=== PATIENT | male | born 1995 | race Caucasian/White ===

== ENCOUNTER 2017-01-08 14:06 | Emergency (ER) | payer OTHER ==
[~2017-01-08] VITALS: Ht 170.2 cm; Wt 72.0 kg
[~2017-01-08 14:06] MED LIST: BENA25MI PO; CARA1TAB2 PO; FAMO20 PO; TUMS500C PO; ZOFR4TAB3 SL
[2017-01-08 14:19] VITALS: BP 125/78; PULSE 103; RESP 16; TEMP 98.4; O2SAT 97
[2017-01-08] MEDS ORDERED: SODIUM CHLOR 0.9% 1000 ML INJ 1,000 ML IV ONE ×2 (14:30)
[2017-01-08] MEDS ORDERED: ONDANSETRON HCL 4 MG/2 ML VIAL IV PUSH ONE (14:30)
--- NOTE | 2017-01-08 14:48 | PD ---
HPI Chief Complaint: GI Complaint Time Seen by Provider: 14:30 Travel History International Travel<30 days: No Contact w/Intl Traveler<30days: No Traveled to known affect area: No History of Present Illness HPI This 21-year-old male said he had an episode while he was working today where he passed out. He woke up early this morning and was not feeling well he vomited several times. He is also having some loose stools. He does not recall eating anything unusual. He has not passed out before. He was having some bilateral lateral chest wall pain. He is on no medications. PFS Past Medical History Asthma: Yes (AGE 3) Diminished Hearing: No Immunizations Current: Yes (UTD) Social History Alcohol Use: No Tobacco Use: No Substance Use: No Allergies-Medications (Allergen,Severity, Reaction): Coded Allergies: No Known Allergies (Verified , 01/08/17) Reported Meds & Prescriptions Reported Meds & Active Scripts Active Reported Amitriptyline (Amitriptyline HCl) 50 Mg Tab 50 Mg PO HS Review of Systems General / Constitutional: No: Fever, Chills Eyes: No: Diploplia, Blurred Vision HENT: No: Headaches Cardiovascular: Positive: Chest Pain or Discomfort Respiratory: No: Cough, Shortness of Breath Gastrointestinal: Positive: Nausea, Vomiting, Diarrhea, Abdominal Pain Genitourinary: No: Urgency, Frequency Musculoskeletal: No: Myalgias, Arthralgias Skin: No Rash, No Itching Neurologic: Positive: Syncope Hematologic/Lymphatic: No: Easy Bruising Physical Exam Narrative GENERAL: Well-developed male SKIN: Focused skin assessment warm/dry. HEAD: Atraumatic. Normocephalic. EYES: Pupils equal and round. No scleral icterus. No injection or drainage. ENT: No nasal bleeding or discharge. Mucous membranes pink and moist. NECK: Trachea midline. No JVD. CARDIOVASCULAR: Regular rate and rhythm. No murmur appreciated. RESPIRATORY: No accessory muscle use. Clear to auscultation. Breath sounds equal bilaterally. GASTROINTESTINAL: Abdomen soft, non-tender, nondistended. Hepatic and splenic margins not palpable. MUSCULOSKELETAL: No obvious deformities. No clubbing. No cyanosis. No edema. NEUROLOGICAL: Awake and alert. No obvious cranial nerve deficits. Motor grossly within normal limits. Normal speech. PSYCHIATRIC: Appropriate mood and affect; insight and judgment normal. Data Data Last Documented VS Vital Signs Date Time Temp Pulse Resp B/P Pulse Ox O2 Delivery O2 Flow Rate FiO2 01/08/17 14:19 98.4 103 16 125/78 97 Orders Electrocardiogram (01/08/17 14:30) Complete Blood Count With Diff (01/08/17 14:30) Comprehensive Metabolic Panel (01/08/17 14:30) Urinalysis - C+S If Indicated (01/08/17 14:30) Sodium Chlor 0.9% 1000 Ml Inj (Ns 1000 M (01/08/17 14:30) Sodium Chlor 0.9% 1000 Ml Inj (Ns 1000 M (01/08/17 14:30) Ondansetron Inj (Zofran Inj) (01/08/17 14:30) Labs Laboratory Tests Test 01/08/17 14:58 White Blood Count 13.1 TH/MM3 Red Blood Count 5.81 MIL/MM3 Hemoglobin 17.1 GM/DL Hematocrit 50.2 % Mean Corpuscular Volume 86.3 FL Mean Corpuscular Hemoglobin 29.4 PG Mean Corpuscular Hemoglobin 34.1 % Concent Red Cell Distribution Width 12.2 % Platelet Count 231 TH/MM3 Mean Platelet Volume 8.4 FL Neutrophils (%) (Auto) 89.1 % Lymphocytes (%) (Auto) 5.0 % Monocytes (%) (Auto) 3.2 % Eosinophils (%) (Auto) 0.7 % Basophils (%) (Auto) 2.0 % Neutrophils # (Auto) 11.6 TH/MM3 Lymphocytes # (Auto) 0.7 TH/MM3 Monocytes # (Auto) 0.4 TH/MM3 Eosinophils # (Auto) 0.1 TH/MM3 Basophils # (Auto) 0.3 TH/MM3 CBC Comment DIFF FINAL Differential Comment Sodium Level 139 MEQ/L Potassium Level 4.3 MEQ/L Chloride Level 105 MEQ/L Carbon Dioxide Level 28.3 MEQ/L Anion Gap 6 MEQ/L Blood Urea Nitrogen 15 MG/DL Creatinine 1.20 MG/DL Estimat Glomerular Filtration 77 ML/MIN Rate Random Glucose 105 MG/DL Calcium Level 8.8 MG/DL Total Bilirubin 0.6 MG/DL Aspartate Amino Transf 13 U/L (AST/SGOT) Alanine Aminotransferase 24 U/L (ALT/SGPT) Alkaline Phosphatase 52 U/L Total Protein 7.9 GM/DL Albumin 4.2 GM/DL MDM Medical Decision Making Medical Screen Exam Complete: Yes Emergency Medical Condition: Yes Medical Record Reviewed: Yes Differential Diagnosis Differential includes gastroenteritis, food poisoning, dehydration, vasovagal syncope Narrative Course EKG shows normal sinus rhythm. Hemoglobin is 17. The urine is 15 with creatinine of 1.2. He has been given IV fluids. He will be released with prescription for Zofran Diagnosis Primary Impression: Acute gastroenteritis Scripts Ondansetron Odt (Zofran Odt)4 Mg Tab4 Mg SL Q8HR PRN (Nausea/Vomiting) #10 TAB Ref 0 Prov:Boni Rutherford MD 01/08/17 Disposition: DISCHARGE HOME Condition: Stable Boni Rutherford MD Jan 08, 2017 14:48
[2017-01-08] MEDS ORDERED: AMIT50TA3 PO (14:51)
[2017-01-08 15:06] LABS: AUTOMATED NEUTROPHIL # 11.6 TH/MM3 (1.8-7.7); BASOPHIL # 0.3 TH/MM3 (0-0.2); EOSINOPHIL # 0.1 TH/MM3 (0-0.4); EOSINOPHIL % 0.7 % (0.0-4.0); HEMATOCRIT 50.2 % (39.0-51.0); HEMO FLAGS DIFF FINAL; LYMPHOCYTE # 0.7 TH/MM3 (1.0-4.8); MEAN CELL VOLUME 86.3 FL (80.0-100.0); MEAN CORPUSCULAR HEMOGLOBIN 29.4 PG (27.0-34.0); MEAN CORPUSCULAR HGB CONC 34.1 % (32.0-36.0); MONO % 3.2 % (0.0-8.0); NEUT % 89.1 % (16.0-70.0); PLATELET COUNT 231 TH/MM3 (150-450); RED BLOOD COUNT 5.81 MIL/MM3 (4.50-5.90); RED CELL DISTRIBUTION WIDTH 12.2 % (11.6-17.2); WHITE BLOOD COUNT 13.1 TH/MM3 (4.0-11.0)
[2017-01-08 15:15] LABS: CHLORIDE 105 MEQ/L (98-107); POTASSIUM 4.3 MEQ/L (3.5-5.1); SODIUM (NA) 139 MEQ/L (136-145)
[2017-01-08 15:19] LABS: ANION GAP 6 MEQ/L (5-15); BICARBONATE 28.3 MEQ/L (21.0-32.0); BLOOD UREA NITROGEN 15 MG/DL (7-18)
[2017-01-08 15:22] LABS: ALT (GPT) 24 U/L (9-52); AST (GOT) 13 U/L (15-39); GLOMERULAR FILTRATION RATE 77 ML/MIN (>89)
[2017-01-08 15:24] LABS: TOTAL BILIRUBIN ADULT 0.6 MG/DL (0.2-1.0)
[2017-01-08 15:25] LABS: ALKALINE PHOSPHATASE 52 U/L (45-117)
[2017-01-08] MEDS ORDERED: ZOFR4TAB3 SL (15:46)
[2017-01-08 16:00] VITALS: BP 120/67; PULSE 89; RESP 16; O2SAT 98
--- NOTE | 2017-01-09 15:29 | EKG ---
Date Performed: 01/08/2017 Time Performed: 14:47:08 PTAGE: 21 years EKG: Sinus rhythm NORMAL ECG Compared to prior tracing no significant change PREVIOUS TRACING : 12/10/2013 12.19 DOCTOR: Stalin Ashby Interpretating Date/Time 01/09/2017 15:28:46
== END 2017-01-08 16:30 | disposition home or self-care (01) ==
LOC: PHED 14:06
DX: K52.9 Noninfective gastroenteritis and colitis, unspecified (principal); R07.89 Other chest pain; R11.2 Nausea with vomiting, unspecified
CPT/HCPCS: 80053; 85025; 93005; 96361; 96374; 99284; J2405; J7030

== ENCOUNTER 2017-02-05 15:02 | Emergency (ER) | payer OTHER ==
[~2017-02-05] VITALS: Ht 170.2 cm; Wt 68.0 kg
[~2017-02-05 15:02] MED LIST changes: +AMIT50TA3 PO; -BENA25MI PO; -CARA1TAB2 PO; -FAMO20 PO; -TUMS500C PO
[2017-02-05 15:14] VITALS: BP 123/75; PULSE 86; RESP 16; TEMP 98.4; O2SAT 100
--- NOTE | 2017-02-05 17:02 | PD ---
HPI Chief Complaint: Wound/Suture/Staple Re-Check Time Seen by Provider: 16:10 Travel History International Travel<30 days: No Contact w/Intl Traveler<30days: No Traveled to known affect area: No History of Present Illness HPI 21-year-old male presents to the emergency room for evaluation of possible surgical site infection. Patient had surgery in [place] at a Hospital 2.5 weeks ago. States he had extreme pain initially after surgery which was controlled after 1 week. States 4 days ago his pain returned localized over the wound. He called his surgeon yesterday who was unable to get him in before patient left on a plane so he went to an urgent care center. There they removed his cast and evaluated the surgical site. Patient states he saw some green drainage from one of the sutures. The urgent care center told him to follow up with his surgeon. Patient states he was unable to because he had a flight to [place]. He reports chills and sweats but has not actually taken his temperature. Denies chronic medical conditions or daily medications. PFSH Past Medical History Hx Anticoagulant Therapy: No Asthma: Yes (AGE 3) Diabetes: No Diminished Hearing: No Immunizations Current: Yes (UTD) Social History Alcohol Use: No Tobacco Use: No Substance Use: No Allergies-Medications (Allergen,Severity, Reaction): Coded Allergies: No Known Allergies (Verified , 02/05/17) Reported Meds & Prescriptions Reported Meds & Active Scripts Active Clindamycin (Clindamycin HCl) 300 Mg Cap 300 Mg PO Q6H 7 Days Review of Systems Except as stated in HPI: all other systems reviewed are Neg Physical Exam Narrative GENERAL: Well-nourished, well-developed male in no acute distress. Afebrile. Ambulatory with crutches. SKIN: Focused skin assessment warm/dry. HEAD: Normocephalic. EYES: No scleral icterus. No injection or drainage. NECK: Supple, trachea midline. No JVD or lymphadenopathy. CARDIOVASCULAR: Regular rate and rhythm without murmurs, gallops, or rubs. RESPIRATORY: Breath sounds equal bilaterally. No accessory muscle use. MUSCULOSKELETAL: No cyanosis, or edema. Data Data Last Documented VS Vital Signs Date Time Temp Pulse Resp B/P Pulse Ox O2 Delivery O2 Flow Rate FiO2 02/05/17 15:14 98.4 86 16 123/75 100 Orders Splint Or Brace Apply/Monitor (02/05/17 17:26) [facility] Medical Decision Making Medical Screen Exam Complete: Yes Emergency Medical Condition: Yes Medical Record Reviewed: Yes Differential Diagnosis Surgical site infection, osteomyelitis, normal examination, wound recheck Narrative Course 21-year-old male presents to the emergency room for surgical site evaluation and increasing pain to his right ankle. Patient had surgery in [place] on January 16. He saw green drainage from his site last night; the urgent care center at which he was being evaluated told him to follow-up with his surgeon. Patient states he was unable to follow-up with his surgeon yesterday because he had to fly from [place] to [place] today. He reports intermittent chills and sweats but denies any objective fevers. He is afebrile and well-appearing in the emergency room. His cast was removed and wound site was evaluated. There is no evidence of infection at this time. There is no clear or purulent drainage, erythema, or increased warmth. No edema. It is slightly tender to palpation. I had my attending physician assess wound and he agrees. The green area the patient was referring to appears to be a dried scab. He will be discharged with prescription for clindamycin and told to follow-up with his orthopedic surgeon or return for worsening symptoms. Mata splint was placed. Patient understands and agrees to this plan. Diagnosis Primary Impression: Encounter for wound re-check Referrals: Orthopaedic Surgeon Patient Instructions: Acute Wound Care (ED), General Instructions Additional Instructions: Rest and drink plenty of fluids. Take clindamycin as directed, until gone. Apply ice to the affected area for 20 minutes at a time, as needed for pain and swelling. Follow-up with a primary care physician. Return to the emergency room for worsening symptoms. Med/Other Pt SpecificInfo: Prescription(s) given Scripts Clindamycin 300 Mg [id number] Mg PO Q6H 7 Days Ref 0 Prov:Chintan Phillips MD 02/05/17 Disposition: 01 DISCHARGE HOME Condition: Stable Kelsey Jon Feb 05, 2017 17:02
[2017-02-05] MEDS ORDERED: CLIN1CAP6 PO (17:26)
== END 2017-02-05 18:30 | disposition home or self-care (01) ==
LOC: PHED 15:02 → PHEFT 18:30
DX: G89.18 Other acute postprocedural pain (principal)
CPT/HCPCS: 29515; 99283; E0113